=== PATIENT | female | born 1945 | race Caucasian/White ===

== ENCOUNTER 2017-09-02 09:15 | Inpatient (IN) | payer OTHER ==
[~2017-09-02] VITALS: Ht 162.6 cm; Wt 41.7 kg
[2017-09-02] MEDS ORDERED: METROPOLOL PO (10:57)
[2017-09-02] MEDS ORDERED: MAVIK PO (10:57)
[2017-09-02] MEDS ORDERED: LEVOXYL50 MCG PO (10:58)
[2017-09-02] MEDS ORDERED: HYDRALAZINE HC100 MG PO (10:59)
[2017-09-16] MEDS ORDERED: HYOSCYAMINE0.125 M1 SL (09:14)
== END 2017-09-16 15:51 | disposition home or self-care (01) | DRG 329 ==
LOC: O/R 09-10 06:10 → SURG 09-10 06:10 → SURH 09-10 07:00 → SURG 09-10 11:32 → MEDI 09-10 11:32 → SURG 09-10 13:07
PROVIDERS: Surgery
PROC: 07TC4ZZ Resection of Pelvis Lymphatic, Percutaneous Endoscopic Approach (ICD-10-PCS; 2017-09-10)
PROC: 4A12X4Z Monitoring of Cardiac Electrical Activity, External Approach (ICD-10-PCS; 2017-09-10)
PROC: 0DTF4ZZ Resection of Right Large Intestine, Percutaneous Endoscopic Approach (ICD-10-PCS; principal; 2017-09-10 07:00)
PROC: 5A1D70Z Performance of Urinary Filtration, Intermittent, Less than 6 Hours Per Day (ICD-10-PCS; 2017-09-11)
DX: D12.0 Benign neoplasm of cecum (principal); N18.6 End stage renal disease; I12.0 Hypertensive chronic kidney disease with stage 5 chronic kidney disease or end stage renal disease; N17.8 Other acute kidney failure; K57.30 Diverticulosis of large intestine without perforation or abscess without bleeding; Z99.2 Dependence on renal dialysis; D63.1 Anemia in chronic kidney disease; Z53.1 Procedure and treatment not carried out because of patient's decision for reasons of belief and group pressure; R41.82 Altered mental status, unspecified; N99.0 Postprocedural (acute) (chronic) kidney failure